=== PATIENT | female | born 1945 | race Caucasian/White ===

== ENCOUNTER → 2017-08-14 | Outpatient (CLI) | payer MEDICARE ==
[~2017-08-14] MED LIST: ASPI-515 PO; CALC-76 PO; CELE200C PO; CHOL100012 PO; DULO30CA2 PO; ESTR1TAB15 PO; FEXO60TA24 PO; FLUC200T PO; FLUC200T4 PO; GABA-827 PO; LACT1CAP35 PO; LIDO700A5 TP; LUTE10TA2 PO; MAGN100T6 PO; META-23 PO; OMEG300C5 PO; OMNIPAQUE 350 MG/ML, 150 ML BOTTLE ONE; OXYB92GE TP; SOTA80TA18 PO; TRIA15CR2 TP; TURM1POW PO; UBID30CA9 PO; WARF10TA43 PO; WARF7.5T46 PO; ZOLP10TA PO; ZOLP6.252 PO; [UNRECOGNIZED DRUG - CODE] PO; [UNRECOGNIZED DRUG - CODE] TP
== END | disposition home or self-care (01) ==
LOC: CFH 08:57
PROVIDERS: ATTEND Internal Medicine Cardiovascular Disease
DX: I48.91 Unspecified atrial fibrillation (principal)
CPT/HCPCS: 71046; 75572; Q9967

== ENCOUNTER 2017-08-15 07:00 | Inpatient (IN) | payer MEDICARE ==
[2017-08-14 11:25] VITALS: BP 158/80
[~2017-08-15] VITALS: Ht 170.2 cm; Wt 60.4 kg
[~2017-08-15 07:00] MED LIST changes: -FLUC200T PO; -OMNIPAQUE 350 MG/ML, 150 ML BOTTLE ONE; -SOTA80TA18 PO; -TURM1POW PO; -WARF7.5T46 PO
[2017-08-15] MEDS ORDERED: ISOPROTERENOL 0.2MG/ML, 5ML ONE (07:30)
[2017-08-15] MEDS ORDERED: LIDOCAINE/PF 1%, 30ML ONE (07:30)
[2017-08-15] MEDS ORDERED: HEPARIN 1,000 UNITS/ML, 10ML ONE (07:30)
[2017-08-15] MEDS ORDERED: SODIUM CHLORIDE 0.9% 1,000 ML IV SCH (07:30)
[2017-08-15] MEDS ORDERED: FLUC200T PO (07:31)
[2017-08-15] MEDS ORDERED: PROTAMINE SULFATE 10 MG/ML, 5ML ONE ×2 (07:31→10:01)
[2017-08-15] MEDS ORDERED: WARF7.5T46 PO (07:32)
[2017-08-15 07:40] LABS: INTERNATIONAL NORMALIZED RATIO 1.99 (0.93-1.1); PROTHROMBIN TIME 20.4 Seconds (9.6-11.5)
[2017-08-15] MEDS ORDERED: MIDAZOLAM 1 MG/ML, 2ML ONE (07:42)
[2017-08-15] MEDS ORDERED: FENTANYL PF 250 MCG/5ML ONE (07:43)
[2017-08-15 07:53] LABS: BASOPHILS # (AUTO) 0.04 x10^3/uL (0-0.1); BASOPHILS % (AUTO) 1 % (0-1); EOSINOPHILS % (AUTO) 2 % (1-7); LYMPHOCYTES # (AUTO) 1.16 x10^3/uL (1-3.4); LYMPHOCYTES % (AUTO) 26 % (22-44); MD NO; MEAN CORPUSCULAR HEMOGLOBIN 31.5 pg (27.0-34.8); MEAN CORPUSCULAR HGB CONC 33.9 g/dL (32.4-35.8); MEAN CORPUSCULAR VOLUME 92.8 fL (80-100); MEAN PLATELET VOLUME 8.2 fL (7.4-10.4); MONOCYTES # (AUTO) 0.54 x10^3/uL (0.2-0.8); MONOCYTES % (AUTO) 12 % (2-9); NEUTROPHILS # (AUTO) 2.65 x10^3/uL (1.8-6.8); NEUTROPHILS % (AUTO) 59 % (42-75); PLATELET COUNT 252 x10^3/uL (130-400); RED BLOOD COUNT 4.29 x10^6/uL (3.82-5.3); RED CELL DISTRIBUTION WIDTH 13.6 % (9.6-15.2)
[2017-08-15 08:00] LABS: ALANINE AMINOTRANSFERASE 32 U/L (12-78); ALBUMIN 3.9 g/dL (3.4-5.0); ANION GAP 6 mmol/L (5-15); CALCIUM 8.6 mg/dL (8.5-10.1); CHLORIDE 105 mmol/L (98-107); CREATININE 0.67 mg/dL (0.55-1.02)
[2017-08-15 08:03] LABS: ALKALINE PHOSPHATASE 46 U/L (45-117); BILIRUBIN,TOTAL 0.7 mg/dL (0.2-1.0); TOTAL PROTEIN 7.4 g/dL (6.4-8.2)
[2017-08-15] MEDS ORDERED: ONDANSETRON 2MG/ML, 2ML ONE (08:03)
[2017-08-15] MEDS ORDERED: ROCURONIUM 10 MG/ML,10ML ONE (08:03)
[2017-08-15] MEDS ORDERED: SUCCINYLCHOLINE 20 MG/ML, 10ML ONE (08:03)
[2017-08-15] MEDS ORDERED: DEXAMETHASONE 4 MG/ML, 1ML ONE (08:03)
[2017-08-15] MEDS ORDERED: CEFAZOLIN 1,000 MG ONE (08:03)
[2017-08-15] MEDS ORDERED: PROPOFOL 10 MG/ML, 20ML ONE (08:03)
[2017-08-15] MEDS ORDERED: VASOPRESSIN 20 UNIT/ML, 1ML ONE (08:03)
[2017-08-15] MEDS ORDERED: [UNRECOGNIZED DRUG - OTHER] PO SCH (10:30)
[2017-08-15] MEDS ORDERED: WARFARIN SODIUM 10 MG PO SCH (10:30)
[2017-08-15] MEDS ORDERED: ZOLPIDEM 5MG TABLET PO PRN (10:30)
[2017-08-15] MEDS ORDERED: ALBUTEROL SULFATE 2.5 MG/3 ML NPPB PRN (11:00)
[2017-08-15] MEDS ORDERED: ONDANSETRON ODT 8 MG PO PRN (11:00)
[2017-08-15] MEDS ORDERED: MIDAZOLAM 1 MG/ML, 2ML IV PRN (11:00)
[2017-08-15] MEDS ORDERED: PROMETHAZINE 25 MG/ML, 1ML IV PRN (11:00)
[2017-08-15] MEDS ORDERED: FENTANYL PF 100 MCG/2ML IV PRN (11:00)
[2017-08-15] MEDS ORDERED: LABETALOL 5MG/ML, 20ML IV PRN (11:00)
[2017-08-15] MEDS ORDERED: HYDROmorphone 1 MG/ML, 1ML IV PRN (11:00)
[2017-08-15] MEDS ORDERED: MEPERIDINE/PF 25MG/0.5ML IVPush PRN (11:00)
[2017-08-15] MEDS ORDERED: OXYcodone 5 MG/5 ML ORAL.SOL UDC PO PRN (11:00)
[2017-08-15] MEDS ORDERED: PROMETHAZINE 12.5 MG SUPP PR PRN (11:00)
[2017-08-15] MEDS ORDERED: hydrALAzine 20 MG/ML, 1ML IV PRN (11:00)
[2017-08-15] MEDS ORDERED: TURM1POW PO (12:52)
[2017-08-15 12:53] VITALS: BP 122/62
[2017-08-15] MEDS ORDERED: WARFARIN 10 MG TABLET PO-COUM SCH (13:13)
[2017-08-15] MEDS: ACETAMINOPHEN 325 MG TABLET PO PRN ×2 (13:37→20:08)
[2017-08-15] MEDS ORDERED: FLUCONAZOLE 100 MG TABLET PO ONE (14:30)
[2017-08-15] MEDS ORDERED: ONDANSETRON 2MG/ML, 2ML IVPush PRN (14:30)
[2017-08-15] MEDS ORDERED: SCOPOLAMINE PATCH, 1.5MG PATCH.TD72 TD PRN (14:30)
[2017-08-15 15:01] VITALS: BP 122/73
[2017-08-15] MEDS: WARFARIN 7.5 MG TABLET PO-COUM SCH (17:40)
[2017-08-15 18:43] VITALS: BP 128/73
[2017-08-15] MEDS: SOTALOL 80MG TABLET PO SCH (18:44)
[2017-08-15 19:21] VITALS: BP 127/75
[2017-08-15] MEDS: GABAPENTIN 300 MG CAPSULE PO SCH (20:08)
[2017-08-16] MEDS: ZOLPIDEM 5MG TABLET PO PRN ×2 (00:24→23:20)
[2017-08-16 01:16] VITALS: BP 133/73
[2017-08-16] MEDS: SOTALOL 80MG TABLET PO SCH ×2 (05:29→17:33)
[2017-08-16 08:15] VITALS: BP 102/68
[2017-08-16] MEDS: LACTOBACILLUS CHEW TABLET PO SCH (08:22)
[2017-08-16] MEDS: DULOXETINE 30 MG CAPSULE.DR PO SCH (08:22)
[2017-08-16] MEDS: ESTRADIOL 1 MG TABLET PO SCH (08:22)
[2017-08-16] MEDS: CALCIUM/VITAMIN D3 250-125 TABLET PO SCH (08:22)
[2017-08-16] MEDS ORDERED: UBIDECARENONE PO SCH (09:00)
[2017-08-16] MEDS ORDERED: LUTEIN 10 MG PO SCH (09:00)
[2017-08-16] MEDS ORDERED: POLYETHYLENE GLYCOL 17 GM PACKET ONE (11:27)
[2017-08-16] MEDS ORDERED: CETIRIZINE 10 MG TABLET ONE (11:27)
[2017-08-16] MEDS ORDERED: POLYETHYLENE GLYCOL 17 GM PACKET PO ONE (11:30)
[2017-08-16] MEDS: CETIRIZINE 10 MG TABLET PO SCH (11:30)
[2017-08-16 15:12] VITALS: BP 137/82
[2017-08-16] MEDS: WARFARIN 7.5 MG TABLET PO-COUM SCH (17:34)
[2017-08-16 19:31] VITALS: BP 132/75
[2017-08-16] MEDS: GABAPENTIN 300 MG CAPSULE PO SCH (20:49)
[2017-08-17 03:12] VITALS: BP 147/79
[2017-08-17 06:22] VITALS: BP 126/70
[2017-08-17] MEDS: SOTALOL 80MG TABLET PO SCH (06:25)
[2017-08-17] MEDS ORDERED: POLYETHYLENE GLYCOL 17 GM PACKET ONE (09:00)
[2017-08-17] MEDS: CETIRIZINE 10 MG TABLET PO SCH (09:04)
[2017-08-17] MEDS: DULOXETINE 30 MG CAPSULE.DR PO SCH (09:05)
[2017-08-17] MEDS: LACTOBACILLUS CHEW TABLET PO SCH (09:05)
[2017-08-17] MEDS: ESTRADIOL 1 MG TABLET PO SCH (09:05)
[2017-08-17] MEDS: CALCIUM/VITAMIN D3 250-125 TABLET PO SCH (09:05)
[2017-08-17] MEDS ORDERED: POLYETHYLENE GLYCOL 17 GM PACKET PO SCH (09:30)
[2017-08-17] MEDS ORDERED: SOTA80TA18 PO (09:55)
== END 2017-08-17 12:04 | disposition home or self-care (01) | DRG 274 ==
LOC: CACL 07:00 → ORIP 10:10 → 5SO 12:36
PROVIDERS: ADMIT Internal Medicine Cardiovascular Disease; ATTEND Internal Medicine Cardiovascular Disease
PROC: 4A023FZ Measurement of Cardiac Rhythm, Percutaneous Approach (ICD-10-PCS; 2017-08-15)
PROC: 4A0234Z Measurement of Cardiac Electrical Activity, Percutaneous Approach (ICD-10-PCS; 2017-08-15)
PROC: 02K83ZZ Map Conduction Mechanism, Percutaneous Approach (ICD-10-PCS; 2017-08-15)
PROC: B24BYZZ Ultrasonography of Heart with Aorta using Other Contrast (ICD-10-PCS; 2017-08-15)
PROC: 02583ZZ Destruction of Conduction Mechanism, Percutaneous Approach (ICD-10-PCS; principal; 2017-08-15 08:00)
DX: I48.91 Unspecified atrial fibrillation (principal); Z87.891 Personal history of nicotine dependence; G47.30 Sleep apnea, unspecified
CPT/HCPCS: 36415; 80053; 85025; 85347; 85610; 85730; 93005; 93306; 93312; 93321; 93325; 93613; 93656; 93662; C1732; C1766; C1893; C1894; J0690; J1100; J1644; J2250; J2405; J2704; J2720; J3010; J3490; C1730; C1759; J0330

== ENCOUNTER 2017-11-06 14:44 | Observation (INO) | payer MEDICARE ==
[~2017-11-06] VITALS: Ht 170.2 cm; Wt 55.0 kg
[~2017-11-06 14:44] MED LIST changes: +DEXAMETHASONE 4 MG/ML, 1ML ONE; +FLUC200T PO; +ONDANSETRON 2MG/ML, 2ML ONE; +SOTA80TA18 PO; +TURM1POW PO; +WARF7.5T46 PO
[2017-11-06] MEDS ORDERED: CEFAZOLIN PMX 1GM/50ML 50 ML IV ONE (15:00)
[2017-11-06] MEDS ORDERED: DIPH,PERTUSS(ACELL),TET VAC/PF 0.5 ML IM-VACC ONE ×3 (15:00→15:54)
[2017-11-06] MEDS ORDERED: SODIUM CHLORIDE FLUSH 10ML SYR IVF ONE (15:00)
[2017-11-06] MEDS ORDERED: ONDANSETRON ODT 4 MG ONE (15:05)
[2017-11-06] MEDS ORDERED: HYDROmorphone 2 MG/ML, 1ML ONE ×2 (15:05→15:35)
[2017-11-06] MEDS: HYDROmorphone 2 MG/ML, 1ML IVPush PRN ×4 (15:08→16:51)
[2017-11-06] MEDS ORDERED: CEFAZOLIN PMX 1GM/50ML 50 ML ONE (15:11)
[2017-11-06 15:46] LABS: BASOPHILS # (AUTO) 0.05 x10^3/uL (0-0.1); BASOPHILS % (AUTO) 1 % (0-1); EOSINOPHILS # (AUTO) 0.03 x10^3/uL (0-0.4); EOSINOPHILS % (AUTO) 1 % (1-7); LYMPHOCYTES # (AUTO) 1.03 x10^3/uL (1-3.4); LYMPHOCYTES % (AUTO) 21 % (22-44); MD NO; MEAN CORPUSCULAR HEMOGLOBIN 31.4 pg (27.0-34.8); MEAN CORPUSCULAR HGB CONC 33.5 g/dL (32.4-35.8); MEAN CORPUSCULAR VOLUME 93.7 fL (80-100); MEAN PLATELET VOLUME 8.1 fL (7.4-10.4); MONOCYTES # (AUTO) 0.47 x10^3/uL (0.2-0.8); MONOCYTES % (AUTO) 10 % (2-9); NEUTROPHILS # (AUTO) 3.24 x10^3/uL (1.8-6.8); NEUTROPHILS % (AUTO) 67 % (42-75); PLATELET COUNT 290 x10^3/uL (130-400); RED BLOOD COUNT 4.32 x10^6/uL (3.82-5.3); RED CELL DISTRIBUTION WIDTH 13.8 % (9.6-15.2)
[2017-11-06 15:50] LABS: ALBUMIN 3.5 g/dL (3.4-5.0); ANION GAP 8 mmol/L (5-15); CALCIUM 9.3 mg/dL (8.5-10.1); CHLORIDE 100 mmol/L (98-107); CREATININE 0.91 mg/dL (0.55-1.02)
[2017-11-06 16:09] LABS: INTERNATIONAL NORMALIZED RATIO 2.35 (0.93-1.1)
[2017-11-06] MEDS ORDERED: ONDANSETRON ODT 4 MG PO ONE (17:30)
[2017-11-06 18:04] VITALS: BP 112/65
[2017-11-06] MEDS ORDERED: FENTANYL PF 100 MCG/2ML ONE (19:56)
[2017-11-06] MEDS ORDERED: MIDAZOLAM 1 MG/ML, 2ML ONE (19:56)
[2017-11-06] MEDS ORDERED: PROPOFOL 10 MG/ML, 20ML ONE (19:58)
[2017-11-06] MEDS ORDERED: ACETAMINOPHEN 325 MG TABLET ONE (20:11)
[2017-11-06] MEDS ORDERED: KETOROLAC 30 MG/1 ML ONE (20:56)
[2017-11-06] MEDS ORDERED: BUPIVACAINE 0.25% ONE (20:58)
[2017-11-06] MEDS ORDERED: FENTANYL PF 100 MCG/2ML IV PRN (21:00)
[2017-11-06] MEDS ORDERED: HYDROmorphone 1 MG/ML, 1ML IV PRN (21:00)
[2017-11-06] MEDS ORDERED: HALOPERIDOL 5 MG/ML IV PRN (21:00)
[2017-11-06] MEDS ORDERED: hydrALAzine 20 MG/ML, 1ML IV PRN (21:00)
[2017-11-06] MEDS ORDERED: MIDAZOLAM 1 MG/ML, 2ML IV PRN (21:00)
[2017-11-06] MEDS ORDERED: MEPERIDINE/PF 25MG/0.5ML IVPush PRN (21:00)
[2017-11-06] MEDS ORDERED: ONDANSETRON 2MG/ML, 2ML IV PRN (21:00)
[2017-11-06] MEDS ORDERED: ONDANSETRON ODT 8 MG PO PRN (21:00)
[2017-11-06] MEDS ORDERED: PROMETHAZINE 12.5 MG SUPP PR PRN (21:00)
[2017-11-06] MEDS ORDERED: PROMETHAZINE 25 MG/ML, 1ML IV PRN (21:00)
[2017-11-06] MEDS ORDERED: ALBUTEROL SULFATE 2.5 MG/3 ML NPPB PRN (21:00)
[2017-11-06] MEDS ORDERED: LABETALOL 5MG/ML, 20ML IV PRN (21:00)
[2017-11-06] MEDS ORDERED: OXYcodone 5 MG/5 ML ORAL.SOL UDC PO PRN (21:00)
[2017-11-06] MEDS ORDERED: MORPHINE SULFATE 4 MG/ML, 1ML IVPush PRN (21:00)
[2017-11-06] MEDS ORDERED: EPHEDRINE 50 MG/ML, 1ML IVPush PRN (21:00)
[2017-11-06] MEDS ORDERED: LORazepam 2 MG/ML, 1ML IVPush PRN (21:00)
[2017-11-06] MEDS ORDERED: BUPIVACAINE/PF 0.25% IM ONE (21:25)
[2017-11-06] MEDS ORDERED: OXYcodone 5 MG/5 ML ORAL.SOL UDC ONE (21:44)
[2017-11-06] MEDS ORDERED: hydrALAzine 20 MG/ML, 1ML ONE (22:04)
[2017-11-06] MEDS ORDERED: HYDR2TAB29 PO (22:42)
[2017-11-06] MEDS ORDERED: ONDA4TAB7 PO (22:43)
[2017-11-06] MEDS ORDERED: AMOX1TAB64 PO (22:43)
== END 2017-11-06 23:45 | disposition home or self-care (01) ==
LOC: ED 15:34 → EDIP 15:35 → ED 15:52 → 4NOR 17:42
PROVIDERS: ADMIT Orthopaedic Surgery; ATTEND Orthopaedic Surgery
DX: S63.283A Dislocation of proximal interphalangeal joint of left middle finger, initial encounter (principal); S63.285A Dislocation of proximal interphalangeal joint of left ring finger, initial encounter; S61.207A Unspecified open wound of left little finger without damage to nail, initial encounter; S61.205A Unspecified open wound of left ring finger without damage to nail, initial encounter; I48.91 Unspecified atrial fibrillation; W18.30XA Fall on same level, unspecified, initial encounter; Y93.89 Activity, other specified; Y92.89 Other specified places as the place of occurrence of the external cause
CPT/HCPCS: 26548; 36415; 71045; 73120; 73130; 76000; 80048; 82040; 85025; 85610; 90715; 93005; 96365; 96375; 96376; 99285; G0378; J0690; J1100; J1170; J1885; J2250; J2405; J2704; J3010; J3490; Q0162